=== PATIENT | female | born 1965 | race Caucasian/White ===

== ENCOUNTER → 2023-06-10 16:57 | Outpatient (REF) | payer OTHER, SELFPAY | LOC: RAD 16:57 | PROVIDERS: ATTENDING PHYSICIAN Nurse Practitioner | DX: M25.531 Pain in right wrist (principal); M79.641 Pain in right hand | CPT/HCPCS: 73110; 73130 ==

== ENCOUNTER → 2024-08-17 07:39 | Outpatient (REF) | payer OTHER, SELFPAY | LOC: HWWDC 07:39 | PROVIDERS: ATTENDING PHYSICIAN Nurse Practitioner | DX: Z12.31 Encounter for screening mammogram for malignant neoplasm of breast (principal) | CPT/HCPCS: 77063; 77067 ==